=== PATIENT | female | born 1950 | race Caucasian/White ===

== ENCOUNTER 2016-12-09 08:54 | Emergency (ER) | payer MEDICARE ==
[~2016-12-09] VITALS: Ht 162.6 cm; Wt 50.0 kg
[~2016-12-09 08:54] MED LIST: CIPR500T4 PO; FLAG500T PO; TAB-TAB PO
[2016-12-09 08:56] VITALS: BP 160/77; PULSE 77; RESP 24; TEMP 97.6; O2SAT 96
--- NOTE | 2016-12-09 09:19 | PD ---
HPI . rat scratch right ankle Chief Complaint: Bite or Sting Time Seen by Provider: 09:18 Travel History International Travel<30 days: No Contact w/Intl Traveler<30days: No Traveled to known affect area: No History of Present Illness HPI 66-year-old female with history of tobaccoism and melanoma that is being treated here with complaints of being scratched by a rock while walking outside of [employer]. Patient said she was trying to enter the store when a rat somehow ran across her foot and scratched her right medial distal lucas. She was not certain whether or not she was bitten, but when she took a closer look at the area she only noticed 2 small scratches. These areas are nontender. She has no other complaints. PFSH Past Medical History Hx Anticoagulant Therapy: No Cancer: Yes (MELANOMA ON NECK; SURGERY 2 YEARS AGO) Cardiovascular Problems: No Chemotherapy: No Cerebrovascular Accident: No Diabetes: No Respiratory: No ?: Unknown Past Surgical History Hysterectomy: No Other Surgery: Yes (MELANOMA REMOVED FROM NECK 2 YEARS AGO) Social History Alcohol Use: No Tobacco Use: Yes (1/2 PACK PER DAY) Substance Use: Yes (MARIJUANA USE "ONCE IN A WHILE") Allergies-Medications (Allergen,Severity, Reaction): Coded Allergies: No Known Allergies (Unverified , 12/09/16) Reported Meds & Prescriptions Reported Meds & Active Scripts Active No Active Prescriptions or Reported Medications Review of Systems General / Constitutional: No: Fever Eyes: No: Visual changes HENT: No: Headaches Cardiovascular: No: Chest Pain or Discomfort Respiratory: No: Shortness of Breath Gastrointestinal: No: Abdominal Pain Genitourinary: No: Dysuria Musculoskeletal: No: Pain Skin: Positive Other (skin abrasion from rat scratch), No Rash Neurologic: No: Weakness Psychiatric: No: Depression Endocrine: No: Polydipsia Hematologic/Lymphatic: No: Easy Bruising Physical Exam Narrative GENERAL: AAO x 3, no acute distress, Well-nourished, well-developed patient. SKIN: Warm and dry. No visible rashes or bruising. two small 1 mm excoriation to the right medial distal lucas HEAD: Normocephalic and atraumatic. EYES: No scleral icterus. No injection or drainage. ENT: No nasal drainage noted. Mucous membranes pink. Airway patent. NECK: Supple, trachea midline. No JVD. CARDIOVASCULAR: Regular rate and rhythm without murmurs, gallops, or rubs. RESPIRATORY: Breath sounds equal bilaterally. No accessory muscle use. No rhonchi or rales. GASTROINTESTINAL: visual inspection normal EXTREMITIES: No cyanosis or edema. BACK: No obvious deformity. NEURO: CN II-12 intact, PSYCH: AAO x 3, normal affect. Data Data Last Documented VS Vital Signs Date Time Temp Pulse Resp B/P Pulse Ox O2 Delivery O2 Flow Rate FiO2 12/09/16 08:56 97.6 77 24 160/77 96 Room Air Orders Tetanus/Diphtheria Tox Adult (Tetanus/Di (12/09/16 09:30) MDM Medical Decision Making Medical Screen Exam Complete: Yes Emergency Medical Condition: Yes Medical Record Reviewed: Yes Differential Diagnosis Rat scratch, rabies exposure Narrative Course 66 yr old female here with a small excoriation, possibly from a rat. I do not recommend rabies PPX. I do recommend tetanus and she agreed. I advised the patient to keep area clean and lookout for signs of infection. Patient verbalized understanding of instructions, questions were answered, and thanked me for their care. I advised them if their condition worsens, please return to the nearest emergency room for further care. Diagnosis Primary Impression: Skin abrasion Additional Impression: Exposure to rodent Patient Instructions: General Instructions Additional Instructions: [place] for worsening signs of infection which include fever, increased redness , increased warmth, purulent drainage, increased swelling or streaking. If any of these develop, please go to the nearest emergency room. Please return to emergency department if your symptoms return or worsen. Follow up with your primary care provider. You can use topical neosporin to the scratch for the next 5 days. Med/Other Pt SpecificInfo: No Change to Meds Scripts No Active Prescriptions or Reported Meds Disposition: 01 DISCHARGE HOME Condition: Stable [place] Dec 09, 2016 09:18
[2016-12-09] MEDS ORDERED: TETANUS/DIPHTHERIA TOXOID ADULT 0.5 ML VIAL IM ONE (09:30)
== END 2016-12-09 09:56 | disposition home or self-care (01) ==
LOC: NEPD 08:54
DX: S80.811A Abrasion, right lower leg, initial encounter (principal); W53.19XA Other contact with rat, initial encounter; Y93.01 Activity, walking, marching and hiking; Y92.512 Supermarket, store or market as the place of occurrence of the external cause; Z23 Encounter for immunization
CPT/HCPCS: 90714; 96372